=== PATIENT | female | born 1955 ===

== ENCOUNTER → 2017-12-23 | Emergency (ER) | payer OTHER ==
[~2017-12-23] VITALS: Ht 157.5 cm; Wt 66.7 kg
[~2017-12-23] MED LIST: CARDIZEM120 MG; CLINDAMYCIN; HYDRALAZINE HCL50 MG; PULMICORT1 MG/2 ML IH; TESSALON PERLE100 M1 PO; TRICOR145 MG; VERAPAMIL ER100 MG
== END | disposition home or self-care (01) ==
LOC: ER 23:08
DX: J40 Bronchitis, not specified as acute or chronic (principal)

== ENCOUNTER 2019-10-09 08:45 | Outpatient (CLI) | payer OTHER | END 2019-10-09 08:54 | disposition home or self-care (01) | LOC: RAD 08:45 | DX: M41.20 Other idiopathic scoliosis, site unspecified (principal) ==